=== PATIENT | male | born 1970 | race Caucasian/White ===

== ENCOUNTER 2017-01-25 08:53 | Day surgery (SDC) | payer OTHER ==
[2017-01-25 10:17] VITALS: O2SAT 100
[2017-01-25] MEDS ORDERED: Lactated Ringer's 500 ML IV ONE ×2 (10:33)
--- NOTE | 2017-01-25 10:34 | CP.SDSHP ---
Same Day Surgery H & P - History Proposed Procedure: EGD Pre-Op Diagnosis: SEE NOTES - Previous Medical/Surgical History Endocrine/Metabolic: Diabetes, Other Neuro: Backaches Misc: Other Pain: 4.Moderate Pain - Allergies Allergies: Allergies No Known Allergies Allergy (Verified 01/25/17 09:47) - Physical Exam General Appearance: N Vital Signs: Vital Signs 01/25/17 09:56 Temperature 97.8 F Pulse Rate 61 Respiratory 20 Rate Blood Pressure 122/69 O2 Sat by Pulse 100 Oximetry Mental Status: Alert & Oriented x3 Neuro: WNL Heart: WNL Lungs: WNL GI: Other - {Optional Preform as Required} Breast: WNL Abdomen: Other Rectal: Other Integument: WNL : WNL Ortho: Other ENT: WNL - Impression Pt. Evaluated Today:Candidate for Anesthesia & Procedure: Yes - Date & Time Time: 10:34 Short Stay Discharge - Short Stay Discharge Admitting Diagnosis/Reason for Visit: DYSPEPSIA Disposition: HOME/ ROUTINE
[2017-01-25] MEDS ORDERED: Midazolam 2 MG/2 ML VIAL ONE (10:37)
[2017-01-25] MEDS ORDERED: Propofol 10 mg/ml Inj (20 ML) ONE (10:37)
[2017-01-25] MEDS ORDERED: Lidocaine Hydrochloride 10 ML INJ ONE (10:47)
[2017-01-25] MEDS ORDERED: Belladonna-Phenobarbital PO ONE (11:05)
[2017-01-25] MEDS ORDERED: Pantoprazole 40 mg EC Tab PO ONE (11:10)
[2017-01-25 12:49] VITALS: TEMP 97
[2017-01-25 12:57] VITALS: BP 95/65; PULSE 55; RESP 16
== END 2017-01-25 12:15 | disposition home or self-care (01) ==
LOC: C.ENDO 08:53
PROVIDERS: ATTEND Specialist
DX: K26.9 Duodenal ulcer, unspecified as acute or chronic, without hemorrhage or perforation (principal); K29.00 Acute gastritis without bleeding; B96.81 Helicobacter pylori [H. pylori] as the cause of diseases classified elsewhere; K29.50 Unspecified chronic gastritis without bleeding; R10.13 Epigastric pain; R10.84 Generalized abdominal pain; K31.89 Other diseases of stomach and duodenum; E11.9 Type 2 diabetes mellitus without complications; E78.5 Hyperlipidemia, unspecified; Z79.84 Long term (current) use of oral hypoglycemic drugs
CPT/HCPCS: 43239; 82948; 88305; 88342; J2250; J2704; J3010; J7120